=== PATIENT | male | born 1985 | race Caucasian/White ===

== ENCOUNTER 2021-12-28 10:42 | Emergency (ER) | payer OTHER, BC ==
[~2021-12-28] VITALS: Ht 177.8 cm; Wt 77.1 kg
[~2021-12-28 10:42] MED LIST: HYDACE5 PO; NAPR500 PO
== END 2021-12-28 11:16 | disposition home or self-care (01) ==
LOC: ER 10:42
DX: S51.811A Laceration without foreign body of right forearm, initial encounter (principal); W25.XXXA Contact with sharp glass, initial encounter; Z88.0 Allergy status to penicillin
CPT/HCPCS: 12001; 99282-25